=== PATIENT | female | born 1950 | race Asian ===

== ENCOUNTER 2019-07-07 02:28 | Inpatient (IN) | payer BC ==
[~2019-07-07] VITALS: Ht 165.1 cm; Wt 73.5 kg
[2019-07-07 02:28] VITALS: BP_SYST 116
--- NOTE | 2019-07-07 02:30 | NUR ---
Patient to ER bed 02 to gown for evaluation. Side rails up.
--- NOTE | 2019-07-07 02:35 | NUR ---
ER at bedside examining patient.
--- NOTE | 2019-07-07 02:40 | NUR ---
Pt came to the ED for SOB at midnight and feeling like her "heart is beating outside of her chest." Pt is unable to recall whether pt has had atrial fibrilation. denies n/v/d or fever. Reports that nothing makes pain go away. Reports that pt took clonidine at 0145. HX of htn medications and takes HTN meds. No other complaints/injuries noted. Will cont. to monitor.
[2019-07-07] MEDS ORDERED: ASPIRIN 81 MG TAB.CHEW PO ONE (02:45)
[2019-07-07] MEDS ORDERED: METO-540 (02:50)
[2019-07-07] MEDS ORDERED: LISI40TA4 (02:50)
[2019-07-07] MEDS ORDERED: CLON0.1T (02:50)
[2019-07-07 02:55] LABS: BASOPHILS % (AUTO) 0.5 % (0.0-2.0); EOSINOPHILS # (AUTO) 0.1 K/uL (0.0-0.4); EOSINOPHILS % (AUTO) 0.6 % (0.0-4.0); HEMATOCRIT 42.6 % (36-48); HEMOGLOBIN 14.4 g/dL (12.0-16.0); LYMPHOCYTES # (AUTO) 3.3 K/uL (1.0-5.5); LYMPHOCYTES % (AUTO) 41.7 % (20.5-51.5); MEAN CORPUSCULAR HEMOGLOBIN 31 pg (27-31); MEAN CORPUSCULAR HGB CONC 34 % (32-36); MEAN CORPUSCULAR VOLUME 91 fL (79.0-98.0); MONOCYTES # (AUTO) 0.4 K/uL (0.0-1.0); MONOCYTES % (AUTO) 4.8 % (1.7-9.3); NEUTROPHILS # (AUTO) 4.2 K/uL (1.8-7.7); NEUTROPHILS % (AUTO) 52.4 % (40.0-70.0); PLATELET COUNT (AUTO) 184 K/uL (130-430); RED CELL DISTRIBUTION WIDTH 13.5 % (9.0-15.0)
[2019-07-07] MEDS ORDERED: DILTIAZEM HCL 25 MG/5 ML VIAL IVP ONE (03:00)
--- NOTE | 2019-07-07 03:05 | NUR ---
IV push medications given. stopped at 10mg, notified.
[2019-07-07 03:15] LABS: PROTHROMBIN TIME 9.9 SECS (9.5-12.5)
[2019-07-07 03:21] LABS: ANION GAP 8 (5-15); CALCIUM 8.3 mg/dL (8.4-11.0); CHLORIDE 101 mmol/L (98-107); CREATININE 0.71 mg/dL (0.55-1.30); GLUCOSE 122 mg/dL (70-99); POTASSIUM 3.3 mmol/L (3.5-5.1); SODIUM SERUM 133 mmol/L (136-145); UREA NITROGEN, BLOOD 12 mg/dL (8-21)
[2019-07-07 03:24] LABS: ALANINE AMINOTRANSFERASE 13 U/L (12-78); ALBUMIN 3.3 g/dL (3.4-4.8); ASPARTATE AMINOTRANSFERASE 17 U/L (10-37); TOTAL BILIRUBIN 0.3 mg/dL (0.0-1.0)
--- NOTE | 2019-07-07 04:00 | NUR ---
Pt states feeling better compared with initially coming into the ER
[2019-07-07] MEDS ORDERED: *LOVENOX 1MG/KG Q12H/PHARMACY XX PRN (04:15)
[2019-07-07] MEDS ORDERED: DILTIAZEM HCL 25 MG/5 ML VIAL IVP PRN (04:15)
[2019-07-07] MEDS ORDERED: ONDANSETRON HCL 4 MG/2 ML VIAL IVP PRN (04:15)
[2019-07-07] MEDS ORDERED: ACETAMINOPHEN 325 MG TABLET PO PRN (04:15)
--- NOTE | 2019-07-07 04:34 | NUR ---
Patient will be admitted to care of Dr. Burnham. Admitted to Telemetry unit. Will go to room 101A. Belongings list completed. Summary report printed. Report will be given at bedside.
--- NOTE | 2019-07-07 04:34 | NUR ---
ADMISSION NOTE Received patient from ER via rico, received report from BRE ROWLAND. Patient admitted with diagnosis of NEW ONSET OF AFIB. Patient oriented to hospital routine, call light, toileting and safety-patient verbalized understanding.
--- NOTE | 2019-07-07 04:34 | NUR ---
Transfer to Telemetry via ACLS protocol. Licensed nurse present. IV present no signs or symptoms of infiltration.
[2019-07-07 04:35] VITALS: BP_SYST 123
--- NOTE | 2019-07-07 04:47 | NUR ---
Consultation Paged Reason for Consultation: Cardiac Was consult called: Y Person who was notified: Vivian Consulting Physician: Dr. Barrera [employer] Ordering Physician: Dr. Rios
--- NOTE | 2019-07-07 05:00 | NUR ---
INITIAL ASSESSMENT AT INITIAL ASSESSMENT, PATIENT IS RESTING IN BED, STABLE, NO SIGNS OF RESPIRATORY DISTRESS. IS AT BEDSIDE. PLAN OF CARE IS COMMUNICATED WITH THE PATIENT AND HER . PATIENT VERBALIZES NO PAIN. SHE SUCCESSFULLY DEMONSTRATES CORRECT USAGE OF CALL LIGHT AT THIS TIME. BED IS LOCKED, ALARMED, AND AT THE LOWEST LEVEL. FALL AND SAFETY PRECAUTIONS WILL BE IN PLACE THROUGHOUT THE SHIFT.
[2019-07-07] MEDS ORDERED: ENOXAPARIN SODIUM 80 MG/0.8 ML SYRINGE SUBCUT ONE (05:45)
--- NOTE | 2019-07-07 06:30 | NUR ---
CLOSING NOTE PATIENT VERBALIZED NO DIZZINESS OR SOB THROUGHOUT THE REMAINDER OF THE SHIFT. AT THIS TIME, PATIENT IS RESTING IN BED, STABLE, NO SIGNS OF RESPIRATORY DISTRESS. CALL LIGHT IS WITHIN REACH. BED IS LOCKED AND AT THE LOWEST LEVEL. FALL AND SAFETY PRECAUTIONS HAVE BEEN IN PLACE THROUGHOUT THE NIGHT. WILL CONTINUE TO MONITOR UNTIL SHIFT REPORT IS GIVEN AT BEDSIDE TO AM NURSE.
[2019-07-07] MEDS: NORMAL SALINE 5 ML DISP.SYRIN IVF SCH ×3 (06:47→22:13)
--- NOTE | 2019-07-07 07:38 | NUR ---
Initial Note-Pt awake, alert, and oriented. Denies any SOB, or dizziness. Safety precautions in place, bed in lowest position. Educated pt on bed alarm for pt safety, pt verbalized understanding. Pt refused bed alarm. Call light within reach encourage to use for assistance.
[2019-07-07 08:00] VITALS: BP_SYST 120
--- NOTE | 2019-07-07 08:00 | NUR ---
paged dr. jalloh per nurse spoke to kaylah dialed [phone]
[2019-07-07] MEDS ORDERED: METOPROLOL TARTRATE 25 MG TABLET PO SCH (09:00)
--- NOTE | 2019-07-07 09:00 | NUR ---
Notes Pt awake in bed. Denies any dizziness, or SOB. No acute distress noted.
--- NOTE | 2019-07-07 10:25 | NUR ---
Spoke with Spoke with Dr. Tej MD aware of potassium 3.3. No new orders given. Informed MD of troponin 0.[address] Bauer was paged.
--- NOTE | 2019-07-07 10:52 | NUR ---
Critical Lab Spoke Dr. Holly MD aware of troponin 0.340. Pt denies any chest pain. No new orders given.
--- NOTE | 2019-07-07 11:30 | NUR ---
Notes Pt resting in bed. Respiration even and un-labored. No acute distress noted.
--- NOTE | 2019-07-07 13:00 | NUR ---
Notes Pt awake. Denies any SOB. No acute distress noted.
[2019-07-07 15:14] VITALS: BP_SYST 121
--- NOTE | 2019-07-07 15:15 | NUR ---
Notes Pt awake, resting in bed. Denies any SOB or dizziness. No acute distress noted.
--- NOTE | 2019-07-07 17:24 | NUR ---
Notes Pt awake, sitting up in bed. Family at bedside. Denies any dizziness or SOB.
[2019-07-07] MEDS ORDERED: POTASSIUM CHLORIDE 10 MEQ TAB.PRT.SR PO ONE (18:30)
[2019-07-07] MEDS ORDERED: METOPROLOL TARTRATE 50 MG TABLET PO ONE (18:30)
--- NOTE | 2019-07-07 18:39 | NUR ---
Spoke with Spoke with Dr. Holly MD aware of potassium 3.3 and second troponin 0.258. Md to put in orders.
--- NOTE | 2019-07-07 19:10 | NUR ---
CHANGE OF SHIFT; received pt. awake, alert and oriented, visitor at bedside. no complaints noted. call light at bedside, instructed to call for help and verbalized understanding. will reassess later.
--- NOTE | 2019-07-07 19:26 | NUR ---
Closing Note Bedside SBAR report given to receiving RN. Pt resting in bed. Denies SOB, or dizziness. Educated pt on use of call light for assistance, pt verbalized understanding. Educated pt on use of bed alarm for pt safety, refusing bed alarm. Bed in lowest and locked position. Care endorsed to lead quality control technician RN.
[2019-07-07] MEDS ORDERED: RIVAROXABAN 10 MG TABLET PO ONE (19:45)
[2019-07-07 20:30] VITALS: BP_SYST 107
--- NOTE | 2019-07-07 20:30 | NUR ---
NOTES: pt. been sleeping, awakened and checked VS. cardiac pattern shows atrial fib with controlled rate @ 96. no chest pain.
[2019-07-07] MEDS ORDERED: METOPROLOL TARTRATE 50 MG TABLET PO SCH (21:00)
[2019-07-07] MEDS ORDERED: ENOXAPARIN SODIUM 80 MG/0.8 ML SYRINGE SUBCUT SCH (21:00)
[2019-07-07 22:00] VITALS: BP_SYST 128
[2019-07-07] MEDS: METOPROLOL TARTRATE 50 MG TABLET PO SCH (22:16)
--- NOTE | 2019-07-07 22:30 | NUR ---
NOTES: pt. awakened for due medication, rechecked VS. pt. ambulated to the restroom and voided.
--- NOTE | 2019-07-07 23:45 | NUR ---
NOTES: pt. sleeping when checked. repositioned self.
[2019-07-08 00:25] VITALS: BP_SYST 130
--- NOTE | 2019-07-08 02:28 | NUR ---
NOTES: made rounds, pt. asleep, no acute distress. cardiac pattern unchanged.
--- NOTE | 2019-07-08 04:17 | NUR ---
NOTES: condition unchanged. cardiac pattern still on atrial fib rate 90-105. pt. sleeping calmly.
--- NOTE | 2019-07-08 06:00 | NUR ---
NOTES: pt. resting when checked , no complaints. for further assist
[2019-07-08] MEDS: NORMAL SALINE 5 ML DISP.SYRIN IVF SCH (06:05)
[2019-07-08] MEDS: METOPROLOL TARTRATE 50 MG TABLET PO SCH (06:07)
[2019-07-08 06:23] LABS: ANION GAP 7 (5-15); CALCIUM 8.6 mg/dL (8.4-11.0); CHLORIDE 109 mmol/L (98-107); CREATININE 0.78 mg/dL (0.55-1.30); GLUCOSE 100 mg/dL (70-99); POTASSIUM 4.3 mmol/L (3.5-5.1); SODIUM SERUM 142 mmol/L (136-145); UREA NITROGEN, BLOOD 13 mg/dL (8-21)
--- NOTE | 2019-07-08 06:30 | NUR ---
CLOSING NOTES; RECHECKED bp 151/55 hr 100, DUE MED GIVEN. CALL LIGHT WITHIN REACH.
--- NOTE | 2019-07-08 07:32 | NUR ---
OPENING NOTE Patient resting in the bed. No acute distress. AAO x 4. Denied of pain. Skin warm and dry to touch. SL intact to LAC, no redness, no swelling, patent. Discussed the safety issue, use call light when needs help, and plan of care, verbally understanding. Safety measure maintained. Call light within reached. Bed locked in low position, side rails up. Refused bed alarm on. Risk and benefit explained, verbally understanding. Will continue to monitor.
[2019-07-08 07:45] VITALS: BP_SYST 126
--- NOTE | 2019-07-08 09:20 | NUR ---
PORTABLE EKG DONE AT BEDSIDE.
--- NOTE | 2019-07-08 10:00 | NUR ---
SEEN AND EXAMINED BY JEVON LEAHY WITH DISCHARGE ORDER.
[2019-07-08] MEDS ORDERED: METO-542 PO (10:36)
[2019-07-08] MEDS ORDERED: RIVA20TA PO (10:37)
[2019-07-08 10:53] VITALS: BP_SYST 146
--- NOTE | 2019-07-08 11:10 | NUR ---
D/C Patient Patient given medication reconciliation form and D/C instructions. Exit Care provided. Patient verbalized understanding. MD discussed with patient the results and treatment provided. Ambulatory with steady gait for discharge to home. Patient in stable condition, ID band removed. IV catheter removed, intact and dressing applied, no active bleeding. Rx of Metoprolol and xarelto given. Patient educated on disease management and safety precautions while on blood thinner. All belongings sent with patient. Patient will follow up with Dr. Barrera in 2 weeks.
[2019-07-08 11:30] VITALS: BP_SYST 117
[2019-07-08] MEDS ORDERED: RIVAROXABAN 10 MG TABLET PO SCH (18:00)
[2019-07-09 03:43] VITALS: BP_SYST 116
--- NOTE | 2019-07-09 04:34 | NUR ---
Note jessica in ED - 07/13/19 at 1926 by ANA Patient will be admitted to care of Dr. Burnham. Admitted to Telemetry unit. Will go to room 101A. Belongings list completed. Summary report printed. Report will be given at bedside.
== END 2019-07-08 11:12 | disposition home or self-care (01) | DRG 281 ==
LOC: SED 02:28 → STU 04:07
PROVIDERS: ADMIT Internal Medicine Hospice and Palliative Medicine; ATTEND Internal Medicine Hospice and Palliative Medicine
DX: I21.A1 Myocardial infarction type 2 (principal); E87.1 Hypo-osmolality and hyponatremia; I48.0 Paroxysmal atrial fibrillation; E87.6 Hypokalemia; I10 Essential (primary) hypertension; Z88.0 Allergy status to penicillin; Z79.899 Other long term (current) drug therapy
CPT/HCPCS: 36415; 71045; 80048; 80053; 82550-TC; 83880; 84484; 85025; 85379; 85610-TC; 85730-TC; 93005; 93306; 96374; 99291; G0378; J1650; J3490